=== PATIENT | female | born 1955 | race African-American/Black ===

== ENCOUNTER 2017-12-07 12:35 | Emergency (ER) | payer OTHER ==
[~2017-12-07] VITALS: Ht 160 cm; Wt 64.4 kg
[2017-12-07] MEDS ORDERED: CLONIDINE HCL0.1 MG PO (14:49)
[2017-12-07] MEDS ORDERED: MEDROL DOSEPAK4 MG PO (14:49)
[2017-12-07] MEDS ORDERED: TRAZODONE HCL50 MG PO (14:49)
[2017-12-07 15:06] VITALS: BP 155/103
== END 2017-12-07 15:08 | disposition home or self-care (01) ==
LOC: EME 12:35
DX: M54.5 Low back pain (principal); G89.29 Other chronic pain; F11.23 Opioid dependence with withdrawal; M51.36 Other intervertebral disc degeneration, lumbar region; M51.27 Other intervertebral disc displacement, lumbosacral region; F17.200 Nicotine dependence, unspecified, uncomplicated
CPT/HCPCS: 72131; 99281; 99284